=== PATIENT | male | born 1955 | race Caucasian/White ===

== ENCOUNTER 2023-09-27 20:34 | Emergency (ER) | payer MEDICARE, SELFPAY ==
[2023-09-27 20:30] VITALS: BP 180/102; PULSE 86; RESP 18; TEMP 36.5; O2SAT 98
--- NOTE | 2023-09-27 20:30 | DI.CT_ITS ---
Exam(s) CT HEAD WO EXAM: CT HEAD WO CLINICAL HISTORY: ams, fall. TECHNIQUE: Imaging Protocol: Axial computed tomography images with coronal and sagittal reformatted images were created and reviewed COMPARISON: No exams were available for comparison FINDINGS: The examination is limited due to patient motion artifact. Ventricles and Extra axial spaces: Normal in size and morphology for the patient's age. Incidental no te is made of a cavum septum pellucidum. Hemorrhage: None. Cerebral parenchyma: No evidence of an acute territorial infarct. No mass effect. Note is made of a n empty sella. Midline shift: None. Brainstem/Cerebellum: Normal. Calvarium: Normal. Visualized Paranasal sinuses/Mastoids: Clear. Soft Tissues: There is a 5 mm metallic foreign body in the right periorbital soft tissues. This is o f uncertain if any current clinical significance. IMPRESSION: No acute intracranial process. RADIATION DOSE DELIVERED: 1,518.84mGy.cm Total DLP DATA REPOSITORY: All CT scans at this facility are submitted to the National Radiology Data Registry (NRDR) Dose Index Registry (DIR) with the [employer] ([employer]). RADIATION OPTIMIZATION: All CT scans at this facility use at least one of these dose optimization te chniques: automated exposure control; mA and/or kV adjustment per patient size (includes targeted exa ms where dose is matched to clinical indication); or iterative reconstruction.
--- NOTE | 2023-09-27 20:30 | RT.EKG_ITS ---
APPROVED REPORT Exam: Resting ECG Reason for Exam: syncope Patient Location: E HR:85 bpm ECG Measurements Heart Rate 85 AXIS IN 131 P 12 QRSd 96 QRS -14 QT 375 T 47 QTc 446 Conclusion Sinus rhythm 85 normal axis no stemi
[2023-09-27 21:03] LABS: Abs Immature Grans 0.03 10^3/uL (0.0-0.06); Absolute Basophil Count 0.07 10^3/uL (0.0-0.2); Absolute Eosinophil Count 0.07 10^3/uL (0.0-0.7); Absolute Lymphocyte Count 2.57 10^3/uL (1.2-3.4); Basophils % 0.9; Eosinophils % 0.9; HCT 49.5 % (40.0-50.0); HGB 16.9 g/dL (13.5-17.5); Immature Grans % 0.4; Lymphocytes % 31.6; MCH 34.7 pg (27.0-33.0); MCHC 34.1 % (32.0-36.0); MCV 102 fL (80-95); MPV 10.6 fL (8.0-11.0); Monocytes % 6.1; Neutrophils % 60.1; Platelet Count 228 10^3/uL (130-400); RBC 4.87 10^6/uL (4.36-5.78); RDW 14.8 % (11.8-14.1); RDW-SD 55.5 fL; WBC 8.14 10^3/uL (4.4-10.8)
[2023-09-27 21:44] LABS: ALT 75 U/L (16-63); AST 70 U/L (15-37); Alkaline Phosphatase 119 U/L (46-116); BUN 6 mg/dL (7-18); Bilirubin, Total 0.5 mg/dL (0.2-1.0); CREATININE 0.7 mg/dL (0.70-1.30); Calcium 9.3 mg/dL (8.5-10.1); Chloride 104 mmol/L (98-107); ETHANOL BLOOD 261.2 mg/dL (<10); Estimated GFR 99.74 (mL/min/1.73m2); Glucose 117 mg/dL (74-106); Magnesium 2.4 mg/dL (1.8-2.4); Potassium 4.9 mmol/L (3.5-5.1); Sodium 141 mmol/L (136-145); Total Protein 7.7 g/dL (6.4-8.2); Troponin I < 50 ng/L (< or =60)
--- NOTE | 2023-09-27 21:51 | ED.GENADUL_ITS ---
Discharge Plan Disposition Patient Disposition: Home Condition: Improving Discharge Details Clinical Impression: Alcohol intoxication, Fall ED Provider: Neyda Lomas Home Meds and New Rx's Prescriptions: No Action No Known Home Meds Discharge Instructions Instructions: Alcohol Intoxication (ED) Additional Instructions: Please avoid drinking alcohol to excess HPI General Date/Time Provider Initiated Documentation: 09/27/23 20:38 . Limitations to Documentation: altered mental status . Information obtained by: patient, family and EMS . HPI Narrative: 67-year-old gentleman without known past medical history presents via EMS for evaluation after repeated falls. Patient's family was very concerned because they noted that he has fallen at least 3 times including once out of a chair striking his head on the table. They were concerned that he was having a stroke because they thought his speech was slurred. EMS reports that they did not note any signs or symptoms concerning for CVA. They report that they have all been drinking. Initially reporting only 1-2 drinks, but the patient reports that he drank at least a pint of fireball. The patient did not want to be transported to the hospital but the family insisted. The patient denies any complaints and states that he feels fine. Children are at bedside and is now a patient in the emergency department. She presented to the ER just to check on her , but syncopized waiting Related Data Home Medications Medication Instructions Recorded Confirmed Unknown [No Known Home Meds] 09/27/23 09/27/23 Allergies Allergy/AdvReac Type Severity Reaction Status Date / Time No Known Allergies Allergy Unverified 09/27/23 20:36 General Stated Complaint: [facility] GEETA: 3 Exam Narrative Exam Narrative: Review of Systems: All systems reviewed & are unremarkable except as noted in HPI and below Well-developed, no acute distress NCAT , no obvious signs of trauma PERRL, normal conjunctiva RRR, no murmurs Unlabored respiratory effort, clear breath sounds bilaterally Nondistended abdomen Extremities w/o deformity, no cyanosis, no edema No rashes or lesions. no focal neurologic deficits Appropriate mood and affect Course Vital Signs Vital signs: Vital Signs Temperature 36.5 C 09/27/23 20:30 Pulse 86 09/27/23 20:30 Respiratory Rate 18 09/27/23 20:30 Blood Pressure 180/102 H 09/27/23 20:30 Pulse Oximetry 98 09/27/23 20:30 Temperature 36.5 C 09/27/23 20:30 Temperature Source Skin 09/27/23 20:30 Pulse 86 09/27/23 20:30 Respiratory Rate 18 09/27/23 20:30 Respiratory Effort Normal, Non-Labored 09/27/23 20:49 Blood Pressure 180/102 H 09/27/23 20:30 Pulse Oximetry 98 09/27/23 20:30 Oxygen Delivery Method Room Air 09/27/23 20:30 Oxygen Flow Rate 0 09/27/23 20:30 Lab/Test Results Lab/Test Results: Laboratory Tests Range/Units 09/27/23 20:55 WBC (4.4-10.8) 10^3/uL 8.14 RBC (4.36-5.78) 10^6/uL 4.87 Hgb (13.5-17.5) g/dL 16.9 Hct (40.0-50.0) % 49.5 MCV (80-95) fL 102 H MCH (27.0-33.0) pg 34.7 H MCHC (32.0-36.0) % 34.1 RDW (11.8-14.1) % 14.8 H Plt Count (130-400) 10^3/uL 228 MPV (8.0-11.0) fL 10.6 Immature Gran % 0.4 Neutrophils % 60.1 Lymphocytes % 31.6 Monocytes % 6.1 Eosinophils % 0.9 Basophils % 0.9 Nucleated RBC % (0.0-0.3) % 0.0 Absolute Neutrophils (1.2-6.7) 10^3/uL 4.90 Absolute Lymphocytes (1.2-3.4) 10^3/uL 2.57 Absolute Monocytes (0.1-0.8) 10^3/uL 0.50 Absolute Eosinophils (0.0-0.7) 10^3/uL 0.07 Absolute Basophils (0.0-0.2) 10^3/uL 0.07 Sodium (136-145) mmol/L 141 Potassium (3.5-5.1) mmol/L 4.9 Chloride (98-107) mmol/L 104 Carbon Dioxide (21.0-32.0) mmol/L 23.0 Anion Gap (3-11) mmol/L 14.0 H BUN (7-18) mg/dL 6 L Creatinine (0.70-1.30) mg/dL 0.7 Est GFR (CKD-EPI 2020) (mL/min/1.73m2) 99.74 Glucose (74-106) mg/dL 117 H Calcium (8.5-10.1) mg/dL 9.3 Magnesium (1.8-2.4) mg/dL 2.4 Total Bilirubin (0.2-1.0) mg/dL 0.5 AST (15-37) U/L 70 H ALT (16-63) U/L 75 H Alkaline Phosphatase (46-116) U/L 119 H Troponin I (< or =60) ng/L < 50 Total Protein (6.4-8.2) g/dL 7.7 Albumin (3.4-5.0) g/dL 4.0 Ethyl Alcohol (<10) mg/dL 261.2 H Medical Decision Making Emergent evaluation of acute altered mental status. Initial differential inc ludes alcohol intoxication, trauma, cardiac dysrhythmia. Patient's syncope is unclear if this is true loss of consciousness syncope, versus alcohol related complication. Patient has no prodromal symptoms. Unlikely to be seizure. He reports intoxication. His gait is steady, his speech is slightly slurred, he is able to identify person place and situation. Patient is generally not interested in any medical evaluation and does not want an IV. It took significant convincing to get an EKG. However, given his age and family's concerns, lab work was obtained. Alcohol level significantly elevated, otherwise lab work is unremarkable. Patient is noted to have steady gait while ambulating around the department to check on his and go to the bathroom. At this time I think the patient is clinically sober and can be discharged. Medical Records Medical records reviewed: Yes I reviewed the patient's medical records. Lab Data Lab results reviewed: Yes I reviewed the patient's lab results. ECG Data Attestation: I personally reviewed and interpreted this ECG (s) as follows: Interpretation: sinus 85 no stemi Quality:SDOH Health Related Social Needs: No Data to Display [facility] All Active Problems (Updated 09/27/23 @ 22:05 by Neyda Lomas MD) Fall (Acute) Alcohol intoxication (Acute) Social History Smoking/Tobacco Use Status: Current every day Tobacco Type: cigarettes Smoking risk assessment performed?: Yes Alcohol Intake: current Alcohol Intake frequency: 3 or more drinks per day Substance use type: does not use PAWSS Have you Been Recently Intoxicated or Drunk Within the Last 30 days?: Unable to Obtain Have you Ever Experienced Previous Episodes of Alcohol Withdrawal?: Unable to Obtain Have you ever Experienced Withdrawal Seizures?: Unable to Obtain Have you ever Experienced Delirium Tremens(DT)s?: Unable to Obtain Have you ever undergone Alcohol Rehabilitation Treatment (i.e, inpt ot outpatient treatment programs)?: Unable to Obtain Have you ever Experienced Blackouts?: Unable to Obtain Have you ever Combined Alcohol with other Downers within the last 90 days?: Unable to Obtain Have you ever Combined Alcohol with any other Substance of Abuse during the last 90 days?: Unable to Obtain Positive Blood Alcohol level on Presentation? [PCS.BAL]: Unable to Obtain Evidence of Increased Autonomic Activity (i.e. HR>120, tremor, sweating, agitation, nausea)?: Unable to Obtain
[2023-09-27 21:58] VITALS: BP 175/92; PULSE 84; RESP 18; O2SAT 97
--- NOTE | 2023-09-27 22:06 | DI.VRAD_ITS ---
PROCEDURE INFORMATION: Exam: CT Head Without Contrast Exam date and time: 09/27/2023 9:49 PM Age: 67 years old Clinical indication: Other: AMS, fall TECHNIQUE: Imaging protocol: Computed tomography of the head without contrast. COMPARISON: No relevant prior studies available. FINDINGS: Brain: Normal. No hemorrhage. Unremarkable white matter. No mass effect. Cerebral ventricles: Cavum septum pellucidum. Pituitary gland and sella: There is a partially empty sella. Paranasal sinuses: Visualized sinuses are unremarkable. No fluid levels. Mastoid air cells: Visualized mastoid air cells are well aerated. Bones/joints: Unremarkable. No acute fracture. Soft tissues: Unremarkable. IMPRESSION: No intracranial posttraumatic changes. Dictated and Authenticated by: Cain Fernandez MD. Ordering:FRANCOIS Darling MD
== END 2023-09-27 22:12 | disposition home or self-care (01) ==
PROVIDERS: Emergency Provider Emergency Medicine
DX: F10.120 Alcohol abuse with intoxication, uncomplicated (principal); F17.210 Nicotine dependence, cigarettes, uncomplicated; Y90.8 Blood alcohol level of 240 mg/100 ml or more
CPT/HCPCS: 80053; 93005; 99285; 70450; 80320; 83735; 84484; 85025; 93010; 99284